=== PATIENT | male | born 1990 | race Two or more races ===

== ENCOUNTER 2017-03-07 11:44 | Emergency (ER) | payer SELFPAY ==
[~2017-03-07] VITALS: Ht 167.6 cm; Wt 84.4 kg
[2017-03-07 12:14] VITALS: BP 114/63
== END 2017-03-07 14:27 | disposition left against medical advice (07) ==
LOC: ER 11:44
DX: S60.551A Superficial foreign body of right hand, initial encounter (principal); Z53.29 Procedure and treatment not carried out because of patient's decision for other reasons; X58.XXXA Exposure to other specified factors, initial encounter; Y93.89 Activity, other specified; Y99.8 Other external cause status; Y92.89 Other specified places as the place of occurrence of the external cause